=== PATIENT | female | born 1955 | race Caucasian/White ===

== ENCOUNTER → 2019-04-05 10:26 | Outpatient (CLI) | payer OTHER, SELFPAY ==
[2019-04-05 11:55] LABS: Erythrocyte Sedimentation Rate 8 MM/HR (0-20)
[2019-04-05 12:03] LABS: C-Reactive Protein Quant 0.5 mg/dL (<1.0)
[2019-04-06 20:05] LABS: ANA Screen, IFA Negative (Negative)
== END ==
PROVIDERS: Visit Provider Ophthalmology
DX: H04.123 Dry eye syndrome of bilateral lacrimal glands (principal); M35.00 Sjogren syndrome, unspecified
CPT/HCPCS: 36415; 85651; 86038; 86140; 86235

== ENCOUNTER 2021-07-31 14:20 | Emergency (ER) | payer OTHER, SELFPAY ==
[2021-07-31 14:26] VITALS: BP 169/85; PULSE 96; RESP 14; TEMP 36.6; O2SAT 97; BMI 33.4
--- NOTE | 2021-07-31 14:36 | PC.NURSE ---
Reports has been outside working/digging. Pain increasing over the past week. Has sciatica pain down left leg intermittently. Baseline neuropathy in lower extremities. Taking one 200mg ibuprofen Q5-6H and cold packs for pain management at home.
--- NOTE | 2021-07-31 14:36 | ED.BACK ---
HPI - Back Pain/Injury General Chief Complaint: Back Pain/Injury Stated Complaint: hurt back Time Seen by Provider: 07/31/21 14:28 Source: patient Limitations: no limitations History of Present Illness HPI Narrative: Patient is a 65-year-old female who presents with left-sided back pain. She states it started a few weeks ago she does 6 in trench around the foundation in her house if all the way around she says she was not in shape for it. She then flew on an air after that she continue to have some back irritation but nothing too terrible. 2 days ago she sat in a car and twisted and pain has gotten significantly worse since then. She has taken 1 Advil without much relief. She has no numbness or tingling in her lower extremity. No changes in bowel or bladder habits. She has no spinal tenderness she did not fall. She has no fever. sHe actually is moving quite well, but it does hurt Related Data Previous Rx's Medication Instructions Recorded cyclobenzaprine 5 mg tablet 5 mg PO TID PRN #10 tab 07/31/21 Allergies Allergy/AdvReac Type Severity Reaction Status Date / Time ciprofloxacin [From Cipro] Allergy Verified 07/31/21 14:31 Review of Systems Review of Systems Narrative: GENERAL: Denies chills,fever HEENT: Denies throat pain RESPIRATORY: Denies dyspnea, cough, wheezing CARDIOVASCULAR: Denies chest pain, palpitations GASTROINTESTINAL: Denies nausea, vomiting MUSCULOSKELETAL: See HPI SKIN: No rash, no laceration, no pruritus NEUROLOGIC: Denies weakness, dizziness, headache, numbness 8 point review of systems is negative except for those stated above and HPI Patient History Social History Smoking Status: Unknown if ever smoked Smoking Status: Unknown if ever smoked alcohol intake frequency: holidays/special occasions only Substance Use Type: does not use Exam Initial Vital Signs Initial Vital Signs: Vital Signs Temperature 97.9 F 07/31/21 14:26 Pulse Rate 96 H 07/31/21 14:26 Respiratory Rate 14 07/31/21 14:26 Blood Pressure 169/85 H 07/31/21 14:26 Pulse Oximetry 97 07/31/21 14:26 GENERAL: Well-appearing, well-nourished and in no acute distress. CARDIOVASCULAR: peripheral pulses in tact, cap refill <2 sec RESPIRATORY: No respiratory distress, speaks in full sentences without difficulty BACK: No vertebral tenderness no midline pain she is having pain in her left lumbar and paraspinal muscles. She is actually able to roll to her left side without any assistant education director. She is able to process both legs stretched easily. Sensation in lower extremities intact and equal. EXTREMITIES: Normal range of motion, no clubbing or edema. Neurovascularly intact NEUROLOGICAL: Cranial nerves II through XII grossly intact. Normal gait and speech. SKIN: Warm, dry, no petechiae, no rashes or lesions. Course Orders Ordered: Discontinued Medications Cyclobenzaprine HCl (Cyclobenzaprine 10 Mg Tablet) 5 mg PO NOW ONE Stop: 07/31/21 14:54 Last Admin: 07/31/21 15:08 Dose: 5 mg Documented by: JERRY Ketorolac Tromethamine (Ketorolac 30 Mg/Ml Vial) 30 mg IM NOW ONE Stop: 07/31/21 14:54 Last Admin: 07/31/21 15:08 Dose: 30 mg Documented by: JERRY Vital Signs Vital signs: Vital Signs - 8 hr 07/31/21 14:26 07/31/21 15:19 Temperature 97.9 F Pulse Rate 96 H 79 Respiratory Rate 14 Blood Pressure 169/85 H 152/88 H Pulse Oximetry 97 98 MDM - Back Pain/Injury MDM Narrative Medical decision making narrative: The patient actually is moving very easily stretching in the bed even. Feeling better after Toradol and Flexeril. Will give her trial of Flexeril discussed proper dosing of ibuprofen. All questions have been addressed. She has no red flag symptoms. Discharge Plan Departure Patient Disposition: Home Clinical Impression: Lumbar back pain Instructions: DI for Back Strain or Sprain Activity Restrictions/Additional Instructions: *You have been diagnosed with back pain *What to do: At this time recommend heating pad light stretching. No strenuous activity but light activity is encouraged. *Continue to take medications as directed Ibuprofen 600 mg every 6 hours if needed for [id number] Flexeril 5 mg every 8 hours if needed for muscle spasm, this does cause drowsiness *Follow up with your primary care provider in 2-3 days *Return to ER if you should have increasing pain, numbness, tingling, weakness, fevers or any new, worsening or concerning symptoms Prescriptions: New cyclobenzaprine 5 mg tablet 5 mg PO TID PRN (Reason: muscle spasm) Qty: 10 RF: 0 Referrals: Miscellaneous,Doctor, MD [Primary Care Provider] -
[2021-07-31] MEDS: CYCLOBENZAPRINE 10 MG TABLET 5 MG PO (15:08)
[2021-07-31] MEDS: KETOROLAC 30 MG/ML VIAL IM (15:08)
[2021-07-31 15:19] VITALS: BP 152/88; PULSE 79; O2SAT 98
== END 2021-07-31 15:22 | disposition home or self-care (01) ==
PROVIDERS: Emergency Provider Emergency Medicine
DX: M54.50 Low back pain, unspecified (principal)
CPT/HCPCS: 96372; 99283; J1885

== ENCOUNTER 2025-07-21 10:58 | Emergency (ER) | payer MEDICARE, OTHER, SELFPAY ==
[2025-07-21 11:02] VITALS: BP 144/84; PULSE 97; RESP 14; TEMP 36.5; O2SAT 98; BMI 34.9
--- NOTE | 2025-07-21 11:47 | ED.FALL ---
HPI - Fall <Theresa Macdonald PA-C - Last Filed: 07/21/25 14:29> General Chief Complaint: Fall Stated Complaint: Sent from [facility] Fell hurt back Time Seen by Provider: 07/21/25 11:14 Mode of arrival: Wheelchair History of Present Illness HPI Narrative: Ms. Pelaez is a pleasant 69-year-old female with a past medical history of hypertension who presents to the emergency department with her sister for back pain after a fall that occurred yesterday. She takes baby aspirin, no other anticoagulation. Patient reports that she was in her bathroom, leaning forward with her hair flipped over/head upside down drying her hair when she flipped her head backwards and became dizzy. She attempted to grab onto something to stabilize her but her hair was in her face so she did fall backwards. Reports that she landed hitting her back on the flat ground, she did also hit the back of her head but majority of the weight hit the center of her back. There was no loss of consciousness. She denies any nausea vomiting headache neck pain visual disturbance after the fall. She has continued to have pain in her mid back region, worse on the right side, worse with standing up straight. Pain is alleviated by lying flat. She is mild discomfort with taking a deep breath but it is not significant. Reports that primarily her pain is due to occasional spasms within the back muscles and the abdominal muscles. She has not interested in any pain medication. She denies any prior back surgeries, no bowel or bladder dysfunction saddle anesthesia, headache, visual disturbance, nausea, vomiting. Related Data Previous Rx's ?Medication ?Instructions ?Recorded cyclobenzaprine 5 mg tablet 5 mg PO TID PRN muscle spasm #10 07/31/21 tabs cyclobenzaprine 10 mg tablet 10 mg PO TID PRN muscle spasm #30 07/21/25 tabs Allergies Allergy/AdvReac Type Severity Reaction Status Date / Time ciprofloxacin (From Cipro) Allergy Verified 07/21/25 11:02 Review of Systems <Theresa Macdonald PA-C - Last Filed: 07/21/25 14:29> Review of Systems ROS Unobtainable: All systems reviewed & are unremarkable except as noted in HPI and below Patient History <Theresa Macdonald PA-C - Last Filed: 07/21/25 14:29> Social History Smoking Status: Unknown if ever smoked Smoking Status: Unknown if ever smoked alcohol intake frequency: holidays/special occasions only Exam <Theresa Macdonald PA-C - Last Filed: 07/21/25 14:29> Narrative Exam Narrative: GENERAL: 69 year old patient appears stated age. Well-developed patient, in no acute distress. Sitting in wheelchair. HEAD: Atraumatic. Normocephalic. No scalp tenderness. EYES: PERRL. Extraocular motions intact. No scleral icterus. No injection or drainage. ENT: Clear ear canals and pearly orozco TMs bilaterally. Nose without bleeding, purulent drainage. Throat without erythema, tonsillar hypertrophy or exudate. Airway patent. NECK: Trachea midline. Cervical ROM intact. No midline cervical tenderness. CARDIOVASCULAR: Regular rate and rhythm. RESPIRATORY: ?Nonlabored respirations. ?Speaking in clear, full sentences. ?Clear to auscultation. Breath sounds equal bilaterally. No wheezes, rales, or rhonchi. ? GASTROINTESTINAL: Abdomen soft, non-tender, nondistended. EXTREMITIES: No upper or lower extremity edema or tenderness to palpation. BACK: Patient reports mild tenderness palpation of midthoracic back region and also the right parathoracic region in addition to over the lateral ribcage, there is no focal rib tenderness, no bruising or deformities. NEURO: AOx3. ?Clear speech. ?Moves all 4 extremities appropriately. Sensation intact to light touch on the bilateral upper and lower extremities. SKIN: No rash or erythema of visible areas Initial Vital Signs Initial Vital Signs: Vital Signs Temperature 97.7 F 07/21/25 11:02 Pulse Rate 97 H 07/21/25 11:02 Respiratory Rate 14 07/21/25 11:02 Blood Pressure 144/84 H 07/21/25 11:02 Pulse Oximetry 98 07/21/25 11:02 Oxygen Delivery Method Room Air 07/21/25 11:02 <Jeremiah Oh MD - Last Filed: 07/25/25 07:38> Initial Vital Signs Initial Vital Signs: Vital Signs Temperature 97.7 F 07/21/25 11:02 Pulse Rate 97 H 07/21/25 11:02 Respiratory Rate 14 07/21/25 11:02 Blood Pressure 144/84 H 07/21/25 11:02 Pulse Oximetry 98 07/21/25 11:02 Oxygen Delivery Method Room Air 07/21/25 11:02 Course <Theresa Macdonald PA-C - Last Filed: 07/21/25 14:29> Orders Ordered: Discontinued Medications Cyclobenzaprine HCl (Cyclobenzaprine 10 Mg Tablet) 10 mg PO NOW ONE Stop: 07/21/25 12:03 Last Admin: 07/21/25 12:07 Dose: 10 mg Documented By: SB Vital Signs Vital signs: Vital Signs - 8 hr 07/21/25 11:02 07/21/25 13:55 Temperature 97.7 F Pulse Rate 97 H 89 Respiratory Rate 14 18 Blood Pressure 144/84 H 160/73 H Pulse Oximetry 98 98 Oxygen Delivery Method Room Air Room Air <Jeremiah Oh MD - Last Filed: 07/25/25 07:38> Orders Ordered: Discontinued Medications Cyclobenzaprine HCl (Cyclobenzaprine 10 Mg Tablet) 10 mg PO NOW ONE Stop: 07/21/25 12:03 Last Admin: 07/21/25 12:07 Dose: 10 mg Documented By: SB Vital Signs Vital signs: Vital Signs - 8 hr 07/21/25 11:02 07/21/25 13:55 Temperature 97.7 F Pulse Rate 97 H 89 Respiratory Rate 14 18 Blood Pressure 144/84 H 160/73 H Pulse Oximetry 98 98 Oxygen Delivery Method Room Air Room Air MDM - Fall <Theresa Macdonald PA-C - Last Filed: 07/21/25 14:29> Medical Records Attestation: I reviewed the patient's medical records. Imaging Data CT scan - chest: Radiologist's Impression: PROCEDURE: CT CHEST WO CON INDICATIONS: fall backward; mid back pain and R rib pain TECHNIQUE: Noncontrast 2.0-2.5 mm thick sections acquired from the pulmonary apices to the posterior costophrenic angles. 7 mm thick axial MIP and 5 mm coronal and sagittal reformats were then acquired. For radiation dose reduction, the following was used: automated exposure control, adjustment of mA and/or kV according to patient size. COMPARISON: None. FINDINGS: Image quality: Diagnostic. Lower Neck: No enlarged lymph nodes. Thyroid: No thyroid nodules which require sonographic follow up, per consensus guidelines. Axillae: No enlarged lymph nodes. Chest Wall: Right mastectomy. Bones: Multilevel degenerative changes of the spine. No acute fractures are seen.. Lungs and Pleura: No pneumothorax or pleural effusions. No consolidation or suspicious nodules. Heart: Heart size is normal. No pericardial effusion. Thoracic Vessels: The aorta and pulmonary arteries demonstrate normal size. Atherosclerotic vascular calcifications. Mediastinum and Cordelia: No enlarged lymph nodes. Esophagus: No wall thickening. No hiatal hernia. Upper Abdomen: Hepatic steatosis. IMPRESSION: No acute traumatic injury within the chest. Dictated by: Mario Merritt M.D. on 07/21/2025 at 13:04 Approved by: Mario Merritt M.D. on 07/21/2025 at 13:08 CT scan - head: Radiologist's Impression: PROCEDURE: CT HEAD/BRAIN WO CON INDICATIONS: fall backwards TECHNIQUE: Noncontrast 4.5 mm thick angled axial sections acquired from the foramen magnum to the vertex, with coronal and sagittal reformats. For radiation dose reduction, the following was used: automated exposure control, adjustment of mA and/or kV according to patient size. COMPARISON: None. FINDINGS: Image quality: Diagnostic. CSF spaces: Basal cisterns are patent. No extra-axial fluid collections. Ventricles are normal in size and shape. Brain: No midline shift. No intracranial mass effect or hemorrhage. Orozco-white matter interface is normal. Skull and face: Calvarium and visualized facial bones are intact, without suspicious lesions. Sinuses: Visualized sinuses and mastoids are clear. IMPRESSION: No acute intracranial pathology. Dictated by: Mario Merritt M.D. on 07/21/2025 at 12:59 Approved by: Mario Merritt M.D. on 07/21/2025 at 13:01 CT - cervical spine: Radiologist's Impression: PROCEDURE: CT CERVICAL SPINE WO CON INDICATIONS: fall backwards TECHNIQUE: Noncontrast 3 mm thick sections acquired from the skull base to the T4 level. Sagittal and coronal reformats were then constructed. For radiation dose reduction, the following was used: automated exposure control, adjustment of mA and/or kV according to patient size. COMPARISON: None. FINDINGS: Image quality: Excellent. Bones: No fractures or dislocations. Multilevel degenerative changes of the cervical spine. Straightening of the normal cervical lordosis. Visualized superior ribs are intact. Soft tissues: Prevertebral soft tissues are normal in thickness. No paravertebral hematomas. No apical pneumothoraces. Right thyroid nodule measuring 1.3 cm, no follow-up is needed based on consensus criteria. IMPRESSION: No displaced fracture or traumatic subluxation. Dictated by: Mario Merritt M.D. on 07/21/2025 at 13:01 Approved by: Mario Merritt M.D. on 07/21/2025 at 13:04 [facility] Narrative Medical decision making narrative: 69-year-old female with a past medical history of hypertension who presents to the emergency department with her sister for back pain after a fall that occurred yesterday. Pain is primarily in the right thoracic/ribcage region. No LOC or headache. Differential diagnosis includes but isn't limited to back sprain, strain, contusion, compression fracture, rib fracture, closed head injury, muscle spasms, etc. On exam patient is in no acute distress, nontoxic appearing, vital signs appropriate. She has tenderness to palpation of the midthoracic region and also the right lateral ribcage region with no deformities or crepitus. Lungs are clear to auscultation. No focal neurologic deficits or signs of basilar skull fracture. Given patient's age, history, we will obtain CT imaging head, neck, chest to evaluate for possible head trauma or chest / back trauma. Printed and discussed imaging results with the patient her sister at the bedside. CT head and neck reveal no acute abnormalities, CT chest reveals no traumatic injury, multilevel degenerative changes of the spine but no acute fractures. Discussed imaging results including incidental findings. Discussed suspicion for soft tissue injuries at this time, she feels much better after receiving Flexeril in the ED so I did send her prescription for this, discussed risks and muscle relaxers. Also discussed supportive care, heat, ice, rest, ibuprofen, acetaminophen. Discussed ER return precautions. Patient verbalized understanding of all information, is ambulatory and stable for discharge home. Discharge Plan Departure Patient Disposition: Home Clinical Impression: Muscle spasm Fall Qualifiers: Encounter type: initial encounter Qualified Code(s): W19.XXXA - Unspecified fall, initial encounter Back strain Qualifiers: Encounter type: initial encounter Qualified Code(s): S39.012A - Strain of muscle, fascia and tendon of lower back, initial encounter Instructions: DI for Back Strain or Sprain Activity Restrictions/Additional Instructions: Dear Ms. Pelaez, Thank you for coming to the emergency department. Today you were evaluated for pain and muscle spasms after fall. Ct scan of your head, neck, chest/upper back did not reveal any broken bones or fractures. I suspect her pain at this time is due to injury to the soft tissue of the back. You have been prescribed muscle relaxers to help with spasms, you can also use ibuprofen and acetaminophen if needed for pain. You may find that heat therapy may be helpful for the spasms. Please take Ibuprofen (Motrin/Advil) or Acetaminophen (Tylenol) for pain. These are available over the counter. You may take Ibuprofen 600 mg every 8 hours with food for pain. You may also take Acetaminophen 650 mg every 4-6 hours for pain. Do not exceed 3000 mg of Tylenol a day as this can cause liver damage. Do not drink alcohol with either of these medications. Please return to ER if you develop any new or worsening symptoms, severe pain, or any other concerns. Please follow up with your primary care doctor within the next 2-3 days for ER follow-up. (If you do not have a PCP you can call [phone]. ?to schedule an appointment with an [facility] Primary Care Provider) IF YOU DEVELOP ANY NEW OR WORSENING SYMPTOMS, RETURN TO THE ER! Please read the attached instructions, they highlight more specific treatments and interventions for you at home. Thank you for letting me participate in your care, Theresa Macdonald PA-C Prescriptions: New cyclobenzaprine 10 mg tablet 10 mg PO TID PRN (Reason: muscle spasm) Qty: 30 0RF No Action cyclobenzaprine 5 mg tablet 5 mg PO TID PRN (Reason: muscle spasm) Qty: 10 0RF Stand Alone Forms: Patient Portal/API ED Sign-out <Jeremiah Oh MD - Last Filed: 07/25/25 07:38> Cosign ED Attending Cossherinature Attestation: I was immediately available in the department for consultation. ?This documentation has been reviewed and I agree with assessment and plan. Supervised by Jeremiah Oh MD
--- NOTE | 2025-07-21 12:02 | DI.CT.S_ITS ---
PROCEDURE: CT CERVICAL SPINE WO CON INDICATIONS: fall backwards TECHNIQUE: Noncontrast 3 mm thick sections acquired from the skull base to the T4 level. Sagittal and coronal reformats were then constructed. For radiation dose reduction, the following was used: automated exposure control, adjustment of mA and/or kV according to patient size. COMPARISON: None. FINDINGS: Image quality: Excellent. Bones: No fractures or dislocations. Multilevel degenerative changes of the cervical spine. Straightening of the normal cervical lordosis. Visualized superior ribs are intact. Soft tissues: Prevertebral soft tissues are normal in thickness. No paravertebral hematomas. No apical pneumothoraces. Right thyroid nodule measuring 1.3 cm, no follow-up is needed based on consensus criteria. IMPRESSION: No displaced fracture or traumatic subluxation. Dictated by: Mario Merritt M.D. on 07/21/2025 at 13:01 Approved by: Mario Merritt M.D. on 07/21/2025 at 13:04
--- NOTE | 2025-07-21 12:02 | DI.CT.S_ITS ---
PROCEDURE: CT HEAD/BRAIN WO CON INDICATIONS: fall backwards TECHNIQUE: Noncontrast 4.5 mm thick angled axial sections acquired from the foramen magnum to the vertex, with coronal and sagittal reformats. For radiation dose reduction, the following was used: automated exposure control, adjustment of mA and/or kV according to patient size. COMPARISON: None. FINDINGS: Image quality: Diagnostic. CSF spaces: Basal cisterns are patent. No extra-axial fluid collections. Ventricles are normal in size and shape. Brain: No midline shift. No intracranial mass effect or hemorrhage. Orozco- white matter interface is normal. Skull and face: Calvarium and visualized facial bones are intact, without suspicious lesions. Sinuses: Visualized sinuses and mastoids are clear. IMPRESSION: No acute intracranial pathology. Dictated by: Mario Merritt M.D. on 07/21/2025 at 12:59 Approved by: Mario Merritt M.D. on 07/21/2025 at 13:01
--- NOTE | 2025-07-21 12:02 | DI.CT.S_ITS ---
PROCEDURE: CT CHEST WO CON INDICATIONS: fall backward; mid back pain and R rib pain TECHNIQUE: Noncontrast 2.0-2.5 mm thick sections acquired from the pulmonary apices to the posterior costophrenic angles. 7 mm thick axial MIP and 5 mm coronal and sagittal reformats were then acquired. For radiation dose reduction, the following was used: automated exposure control, adjustment of mA and/or kV according to patient size. COMPARISON: None. FINDINGS: Image quality: Diagnostic. Lower Neck: No enlarged lymph nodes. Thyroid: No thyroid nodules which require sonographic follow up, per consensus guidelines. Axillae: No enlarged lymph nodes. Chest Wall: Right mastectomy. Bones: Multilevel degenerative changes of the spine. No acute fractures are seen.. Lungs and Pleura: No pneumothorax or pleural effusions. No consolidation or suspicious nodules. Heart: Heart size is normal. No pericardial effusion. Thoracic Vessels: The aorta and pulmonary arteries demonstrate normal size. Atherosclerotic vascular calcifications. Mediastinum and Cordelia: No enlarged lymph nodes. Esophagus: No wall thickening. No hiatal hernia. Upper Abdomen: Hepatic steatosis. IMPRESSION: No acute traumatic injury within the chest. Dictated by: Mario Merritt M.D. on 07/21/2025 at 13:04 Approved by: Mario Merritt M.D. on 07/21/2025 at 13:08
[2025-07-21] MEDS: CYCLOBENZAPRINE 10 MG TABLET PO (12:07)
[2025-07-21 13:55] VITALS: BP 160/73; PULSE 89; RESP 18; O2SAT 98
== END 2025-07-21 13:55 | disposition home or self-care (01) ==
PROVIDERS: Emergency Provider Physician Assistant
DX: S39.012A Strain of muscle, fascia and tendon of lower back, initial encounter (principal); M62.830 Muscle spasm of back; S09.90XA Unspecified injury of head, initial encounter; Z79.82 Long term (current) use of aspirin; R07.81 Pleurodynia; W19.XXXA Unspecified fall, initial encounter
CPT/HCPCS: 70450; 71250; 72125; 99283; 99284